=== PATIENT | female | born 2000 | race Caucasian/White ===

== ENCOUNTER 2019-09-16 15:33 | Outpatient (REF) | payer SELFPAY ==
[2019-09-16 17:46] LABS: Chol HDL Ratio 2.84 mg/dL (0.0-4.40); Cholesterol 142 mg/dL (0-200); Glucose 83 mg/dL (65-115); HDL Cholesterol 50 mg/dL (60-100); LDL Cholesterol Calculated 74 mg/dL (50-129); LDL HDL Ratio 1.48 RATIO (0.00-3.22); Triglycerides 91 mg/dL (0-150)
[2019-09-16 18:43] LABS: Estmated Average Glucose 103; Hemoglobin A1C 5.2 % (4.0-6.0)
== END 2019-09-16 15:34 | disposition home or self-care (01) ==
LOC: LAB 15:33
PROVIDERS: Family Provider Nurse Practitioner Family; PCP Nurse Practitioner Family; Visit Provider Dermatology
DX: Z13.9 Encounter for screening, unspecified (principal)
CPT/HCPCS: 80061; 82947; 83036

== ENCOUNTER → 2020-06-13 08:00 | Outpatient (BNVA) | payer BC, SELFPAY | PROVIDERS: Family Provider Nurse Practitioner Family; PCP Nurse Practitioner Family; Visit Provider Nurse Practitioner Family | DX: Z20.828 Contact with and (suspected) exposure to other viral communicable diseases (principal) | CPT/HCPCS: 87635 ==

== ENCOUNTER 2021-05-24 15:28 | Outpatient (CLI) | payer BC, SELFPAY ==
--- NOTE | 2021-05-24 15:35 | XR_ITS ---
WS: [id number] Lumbar spine, 3 views, 05/24/2021 Clinical Data: R20.0 - Anesthesia of skin Comparison: None. Findings: No compression fractures or subluxation is seen. No disc space narrowing is seen. The transverse proc esses and SI joints are normal. XR/XR lumbar spine 2-3V* 00004 Impression: Negative lumbar spine.
--- NOTE | 2021-05-24 15:35 | XR_ITS ---
WS: [id number] Right hip, AP and frog-leg views, 05/24/2021 Clinical Data: M25.551 - Pain in right hip Comparison: None. Findings: No fractures or dislocations are seen. The hip joint is intact. The soft tissues are not remarkable. The adjacent pelvis is normal. XR/XR hip RT 2-3V wo/w pel* [id number] Impression: Negative right hip. [place] classification: grade 0: normal radiographs
== END 2021-05-24 15:29 | disposition home or self-care (01) ==
LOC: RAD 15:33
PROVIDERS: PCP Nurse Practitioner Family; Visit Provider Nurse Practitioner Family
DX: M25.551 Pain in right hip (principal); R20.0 Anesthesia of skin
CPT/HCPCS: 72100; 73502

== ENCOUNTER → 2022-08-29 08:08 | Outpatient (BNVA) | payer BC, SELFPAY | PROVIDERS: PCP Nurse Practitioner Family; Visit Provider Nurse Practitioner Family | DX: R10.13 Epigastric pain (principal); R11.2 Nausea with vomiting, unspecified | CPT/HCPCS: 80053; 85025 ==

== ENCOUNTER → 2022-12-13 08:29 | Outpatient (BNVA) | payer BC, SELFPAY | PROVIDERS: PCP Nurse Practitioner Family; Visit Provider Nurse Practitioner Family | DX: R50.9 Fever, unspecified (principal); J02.9 Acute pharyngitis, unspecified; Z20.822 Contact with and (suspected) exposure to COVID-19 | CPT/HCPCS: 87426; 87880 ==

== ENCOUNTER → 2023-02-19 13:19 | Outpatient (BNVA) | payer BC, SELFPAY | PROVIDERS: PCP Nurse Practitioner Family; Visit Provider Nurse Practitioner Family | DX: R22.30 Localized swelling, mass and lump, unspecified upper limb (principal); R53.83 Other fatigue | CPT/HCPCS: 80053; 84443; 85025 ==

== ENCOUNTER 2023-09-14 22:24 | Emergency (ER) | payer BC, SELFPAY ==
[2023-09-14 22:30] VITALS: BP 131/84; PULSE 93; RESP 16; TEMP 36.7; O2SAT 100; BMI 26.6
--- NOTE | 2023-09-14 23:59 | W.ED.WOUNDLC ---
HPI - Wound/Laceration General: Chief Complaint: Wound/Laceration Stated Complaint: Right hand injury Time Seen by Provider: 09/14/23 23:57 History of Present Illness: Patient comes in today for a laceration to the left thumb. Patient was avoiding bread at home and ended up with a laceration to the thumb. Patient has normal range of motion of the thumb. No foreign bodies noted. Patient appears nontoxic. Review of Systems General: Reports: 10 or more systems reviewed and unremarkable except in HPI and below PFSH ED PFSH: Medical History Situational anxiety Surgical History History of tonsillectomy and adenoidectomy [place] teeth extracted Family History Other Cancer Dementia Hyperlipidemia Hypertension Social History Smoking and tobacco/nicotine status: never used tobacco/nicotine Alcohol intake: never Substance/Drug Use: never Adopted: No Lives independently: Yes Household members: family Housing: House Marital status: Single Highest education level completed: Associate Degree: Academic Program Education level details: NURSE service: No Current occupational status: employed Current occupation: RN Current occupational exposures/hazards: No Pets and animals: Yes Sexually active: No Do you think of yourself as: Straight/Heterosexual Current gender identity: Female Physical Exam Const: COMMON NORMALS: alert HENMT: COMMON NORMALS: normocephalic and atraumatic HEAD & SCALP: normocephalic and atraumatic Neck/C-Spine: COMMON NORMALS: full ROM Resp: COMMON NORMALS: normal respiratory effort Cardio: COMMON NORMALS: regular rate RATE: regular rate Back/Pelvis: COMMON NORMALS: thoracic and lumbar spine normal to inspection Extremity: LEFT UPPER EXTREMITY: Yes hand & digits (3 cm laceration to thumb pad) Left hand and digits: Yes inspection, Yes palpation, Yes ROM and Yes neurovascular exam Neuro: SENSORIUM/ORIENTATION: Yes alert Skin: TRAUMA: laceration (Linear left thumb 3 cm) Procedures Laceration Laceration 1: Site: hand (Thumb) Side (If applicable): left Size (cm): 3 Description: linear Depth: simple, single layer Local Anesthetic: lidocaine 2% Amount of anesthesia used (mL): 4 Pre-repair: wound explored and irrigated extensively Skin layer closed with: nylon Size (cm): 4-0 Number of sutures: 5 Technique: simple, interrupted (2) and horizontal mattress (3) Course Vital Signs: Vital signs: Vital Signs Temperature 98.1 F 09/15/23 00:48 Pulse Rate 93 09/15/23 00:48 Respiratory Rate 16 09/15/23 00:48 Blood Pressure 131/84 09/15/23 00:48 Pulse Oximetry 100 09/15/23 00:48 Oxygen Delivery Me thod Room Air 09/14/23 22:30 MDM - Wound/Laceration Medical Decision Making 23-year-old female comes in today with injury to the left thumb. On exam patient has a 3 cm laceration to the left thumb. Patient moves extremity well without difficulty. No foreign bodies noted within the laceration. Differential diagnosis includes not limited to need for prophylaxis tetanus, need for prophylaxis antibiotic, laceration, foreign body, fracture. No foreign body or fracture was noted in the wound. Patient reported that tetanus is up-to-date. Wound was closed with nylon sutures. Patient tolerated well. Patient will be prescribed antibiotic and sent to the pharmacy to use as needed for signs of infection. Patient reported understanding of care plan need for follow-up or return to the ER. No radiology studies performed this visit Discharge Plan Discharge Patient Disposition: Home Clinical Impression: Laceration of thumb Qualifiers: Encounter type: initial encounter Damage to nail status: without damage Foreign body presence: without foreign body Laterality: left Qualified Code(s): S61.012A - Laceration without foreign body of left thumb without damage to nail, initial encounter Condition: Stable Prescriptions: Continued cefdinir 300 mg capsule 300 mg PO BID Qty: 20 0RF No Action propranolol 20 mg tablet 20 mg PO DAILY PRN (Reason: anxiety) triamcinolone acetonide 0.1 % cream 1 applic topical BID Qty: 80 1RF Rx Instructions: to itchy areas on legs no more than 2 wks/mo prn clindamycin-benzoyl peroxide 1.2 %(1 % base) -5 % gel 1 applic topical DAILY Qty: 45 2RF Rx Instructions: Apply thin film to face chest and back every morning. May bleach clothes. adapalene 0.3 % gel 1 applic topical DAILY Qty: 45 3RF Rx Instructions: Apply pea-sized amount to clean, dry face nightly doxycycline hyclate 100 mg capsule 100 mg PO DAILY Qty: 30 2RF scopolamine base 1 mg over 3 days patch 3 day 1 patch transdermal Q3D PRN (Reason: motion sickness) Qty: 4 2RF medroxyprogesterone [Depo-Provera] 150 mg/mL syringe 150 mg IM .[id number] Days Qty: 1 3RF albuterol sulfate [ProAir HFA] 90 mcg/actuation HFA aerosol inhaler 2 puff inhalation QID PRN (Reason: shortness of breath or wheezing) Qty: 6.7 0RF cephalexin 500 mg capsule 500 mg PO TID Qty: 30 0RF hydroxyzine HCl 50 mg tablet 50 mg PO BID PRN (Reason: itching) 30 Days Qty: 30 11RF doxycycline hyclate 100 mg capsule 100 mg PO BID Qty: 14 0RF Discharge Orders: Discharge ED (Routine); Ordered 09/15/23 Ordered By: Evin Rangel Referrals: Rain Wilson FNP-C [Primary Care Provider] - Discharge Diet: Usual diet Discharge Activity: Increase activity as tolerated Patient Instructions: Laceration (ED) Activity Restrictions/Additional Instructions: Keep wound clean and dry. Monitor site for signs of infection such as increased redness and swelling of the thumb. If fever and redness start start taking antibiotic as directed cefdinir 300 mg 1 capsule 3 times a day for the next 10 days. Sutures will need to come out in 7 to 10 days. Follow-up with primary care or return to the ER for new concerns. Coding Level of Care Code ED [employer] for [employer]
[2023-09-15 00:48] VITALS: BP 131/84; PULSE 93; RESP 16; TEMP 36.7; O2SAT 100
== END 2023-09-15 00:50 | disposition home or self-care (01) ==
PROVIDERS: Emergency Provider Nurse Practitioner Family; PCP Nurse Practitioner Family
DX: S61.012A Laceration without foreign body of left thumb without damage to nail, initial encounter (principal); W26.0XXA Contact with knife, initial encounter; Y93.G3 Activity, cooking and baking
CPT/HCPCS: 12002; 99282